=== PATIENT | male | born 1985 | race African-American/Black ===

== ENCOUNTER 2017-04-30 13:18 | Emergency (ER) | payer OTHER ==
[~2017-04-30] VITALS: Ht 193 cm; Wt 140.6 kg
[2017-04-30] MEDS ORDERED: TRAMADOL 50 MG50 MG PO (15:15)
[2017-04-30] MEDS ORDERED: BACTRIM DS TAB1 EACH PO (15:15)
== END 2017-04-30 15:22 | disposition home or self-care (01) ==
LOC: ER 13:18
DX: L02.31 Cutaneous abscess of buttock (principal)